=== PATIENT | female | born 1970 | race American Indian/Alaskan Native ===

== ENCOUNTER 2016-10-25 08:43 | Outpatient (CLI) | payer MEDICAID ==
--- NOTE | 2016-10-25 11:53 | Mammography Report ---
BILATERAL DIGITAL DIAGNOSTIC MAMMOGRAM and BILATERAL BREAST ULTRASOUND: 10/25/16 08:43:00 CLINICAL: Recalled for bilateral asymmetries. COMPARISON:09/13/16 screening FINDINGS: Bilateral lateralmedial and bilateral spot compression MLO and CC views were performed and demonstrate partial effacement of bilateral asymmetries with persistent asymmetries on the lateral views. Ultrasound of the right breast (including all four quadrants and the retroareolar area) was performed and demonstrated normal fibroglandular and fatty structures. No mass, cyst or shadowing. Ultrasound of the left breast (including all four quadrants and the retroareolar area) was performed. A benign cyst at 2 o'clock 5 cm from the nipple measures 6 x 6 x 6 mm. No solid mass or shadowing. IMPRESSION: Bilateral probably benign asymmetries with no ultrasound correlate. BI-RADS CATEGORY: 3 - - Probably Benign RECOMMENDATION: Six month followup bilateral mammogram. ACR BI-RADS MAMMOGRAPHIC CODES: 0 = Needs additional imaging evaluation; 1 = Negative; 2 = Benign; 3 = Probably benign; 4 = Suspicious; 5 = Malignant; 6 = Known biopsy-proven malignancy COMMENT: 1. Dense breast tissue, i.e., adenosis, fibrocystic changes, etc., may obscure an underlying neoplasm. 2. Approximately 10% of cancers are not detected with mammography. 3. A negative mammography report should not delay biopsy if a clinically suspicious mass is present. COMMENT: Patient follow-up letters are generated via our [employer] application.
== END 2016-10-25 08:44 | disposition home or self-care (01) ==
LOC: MAMMO 08:43
PROVIDERS: ATTEND Registered Nurse Registered Nurse First Assistant
DX: N60.02 Solitary cyst of left breast (principal); R92.2 Inconclusive mammogram; R92.8 Other abnormal and inconclusive findings on diagnostic imaging of breast
CPT/HCPCS: 76641; G0204; 77066

== ENCOUNTER 2019-08-01 01:08 | Emergency (ER) | payer SELFPAY ==
[2019-08-01 01:18] VITALS: BP 136/81
--- NOTE | 2019-08-01 01:56 | Emergency Department Report ---
ED General Adult HPI - General Chief complaint: Anxiety Stated complaint: BIRD Time Seen by Provider: 08/01/19 01:33 Source: patient Mode of arrival: Ambulatory Limitations: No Limitations - History of Present Illness Initial comments: Patient is a 49-year-old who presents emergency room with complaints of difficulty in breathing that began today. she states that she feels anxious and began hyperventilating earlier today. She states she was previously on buspirone but has been started on xanax. She states that she has been referred to a psychologist. Denies any chest pain, nausea, vomiting, diarrhea, fever, lower extremity edema. States she has had increased stress. She denies any SI, HI, or hallucinations. She has past medical history of hypertension and asthma. denies any allergies medications. Last menstrual cycle July 20. - Related Data Home Medications Medication Instructions Recorded Confirmed Last Taken ALPRAZolam [Xanax TAB] 1 mg PO TID PRN 04/27/16 04/27/16 04/27/16 19:00 Citalopram [celeXA] 20 mg PO QDAY 04/27/16 04/27/16 04/27/16 09:00 Hydroxyzine HCl [hydrOXYzine] 50 mg PO DAILY 04/27/16 04/27/16 04/22/16 09:00 Previous Rx's Medication Instructions Recorded Last Taken Type Lisinopril [Zestril TAB] 20 mg PO QDAY #30 tablet 08/07/15 04/27/16 09:00 Rx Allergies Allergy/AdvReac Type Severity Reaction Status Date / Time sulfamethoxazole Allergy Unknown Verified 08/07/15 09:19 [From Bactrim] trimethoprim [From Bactrim] Allergy Unknown Verified 08/07/15 09:19 ED Review of Systems ROS: Stated complaint: BIRD Other details as noted in HPI Comment: All other systems reviewed and negative ED Past Medical Hx - Past Medical History Previous Medical History?: Yes Hx Hypertension: Yes Hx Psychiatric Treatment: Yes (anxiety) Hx Asthma: Yes Additional medical history: Anxiety - Surgical History Past Surgical History?: Yes Additional Surgical History: Tubal ligation - Social History Smoking Status: Never Smoker - Medications Home Medications: Home Medications Medication Instructions Recorded Confirmed Last Taken Type Lisinopril [Zestril TAB] 20 mg PO QDAY #30 tablet 08/07/15 04/27/16 04/27/16 09:00 Rx ALPRAZolam [Xanax TAB] 1 mg PO TID PRN 04/27/16 04/27/16 04/27/16 19:00 History Citalopram [celeXA] 20 mg PO QDAY 04/27/16 04/27/16 04/27/16 09:00 History Hydroxyzine HCl [hydrOXYzine] 50 mg PO DAILY 04/27/16 04/27/16 04/22/16 09:00 History ED Physical Exam - General Limitations: No Limitations General appearance: alert, in no apparent distress - Head Head exam: Present: atraumatic, normocephalic - Eye Eye exam: Present: normal appearance - ENT ENT exam: Present: mucous membranes moist - Respiratory Respiratory exam: Present: normal lung sounds bilaterally. Absent: respiratory distress, wheezes, rales, rhonchi, stridor, chest wall tenderness, accessory muscle use, decreased breath sounds, prolonged expiratory - Cardiovascular Cardiovascular Exam: Present: regular rate, normal rhythm, normal heart sounds. Absent: systolic murmur, diastolic murmur, rubs, gallop - Neurological Exam Neurological exam: Present: alert, oriented X3 - Psychiatric Psychiatric exam: Present: normal affect, normal mood - Skin Skin exam: Present: warm, dry, intact ED Course Vital Signs 08/01/19 01:12 Temperature 98.2 F Pulse Rate 84 Respiratory 16 Rate Blood Pressure 136/81 O2 Sat by Pulse 100 Oximetry ED Medical Decision Making - Medical Decision Making Patient is a 49-year-old who presents emergency room with complaints of difficulty in breathing that began today. she states that she feels anxious and began hyperventilating earlier today. She states she was previously on buspirone but has been started on xanax. She states that she has been referred to a psychologist. Denies any chest pain, nausea, vomiting, diarrhea, fever, lower extremity edema. States she has had increased stress. She denies any SI, HI, or hallucinations. She has past medical history of hypertension and asthma. denies any allergies medications. Last menstrual cycle July 20. PERC criteria negative for PE. vitals are normal. heart and lung sounds are normal. Advised patient that we need to do an EKG and a chest x-ray to rule out any abnormalities. She reports that she just had these performed last week and "everything was normal." Patient states that she does not want to have these tests performed. Advised patient that she would need to sign out AGAINST MEDICAL ADVICE. discussed with patient the first line treatment for anxiety is psychotherapy and coping mechanisms. Advised patient to watch laura talks online and other coping mechanism videos and to begin therapy. according to the [place] REGISTERED TRAVEL NURSE pt filled 30 tablets of lorazepam on 07/29/19. pt also drove herself to the emergency room. will not be giving patient any benzos during todays ED visit for safety concerns for the patient and others. advised pt to return immediately for any new/worsening symptoms or if experiencing SI/HI/hallucinations and to see her PCP/psychologist H[facility]. The patient is alert and oriented 3. The patient exhibits decision-making capacity. The patient is free from distracting injury. The risk of leaving without a complete medical examination and AGAINST MEDICAL ADVICE were expecting to the patient and they included , disability, paralysis, permanent loss of quality of life. The patient verbalized understanding to these and was able to articulate these risks in their own words and this conversation is witnessed by VASILIY Mcintosh. Critical care attestation.: If time is entered above; I have spent that time in minutes in the direct care of this critically ill patient, excluding procedure time. ED Disposition Clinical Impression: Anxiety, Difficulty breathing Disposition: DC-07 LEFT AGAINST MED ADVICE Is pt being admited?: No Does the pt Need Aspirin: No Condition: Undetermined Forms: AMA Form Time of Disposition: 01:57 Print Language: ESTONIAN
== END 2019-08-01 01:40 | disposition left against medical advice (07) ==
LOC: ED 01:08
DX: F41.9 Anxiety disorder, unspecified (principal); J45.909 Unspecified asthma, uncomplicated; I10 Essential (primary) hypertension; Z88.2 Allergy status to sulfonamides; Z88.5 Allergy status to narcotic agent; Z79.899 Other long term (current) drug therapy; Z98.51 Tubal ligation status
CPT/HCPCS: 99282